=== PATIENT | male | born 1970 | race Caucasian/White ===

== ENCOUNTER 2022-01-02 11:43 | Emergency (ER) | payer OTHER, SELFPAY ==
[2022-01-02] VITALS (8 sets, daily range): BP systolic 123–136; BP diastolic 76–91; PULSE 66–75; RESP 13–28; TEMP 37.1; O2SAT 96–99; BMI 26.2
--- NOTE | 2022-01-02 11:55 | ED_ITS ---
HPI - Chest Pain General Chief Complaint: Extremity Problem,Nontraumatic Stated Complaint: Chest pain/ left arm hurting Time Seen by Provider: 01/02/22 11:54 History of Present Illness HPI narrative: Patient is a 51-year-old male presenting today with left arm discomfort. He was seen evaluated at [facility] when he was experiencing some sort of chest pain. At that time he was noted to be quite hypertensive he was started on blood pressure medication. He was told to follow up with the primary care provider whom he does not have for stress test. His dad had bypass surgery at the age of 60. Today patient presents with left arm achiness and says left scapular pain. For the last 1 week he has been taking his blood pressure medication and going about his daily activities. He denies any shortness of breath with exertion no actual chest pain. But he says he just does not feel quite right. Today he just feels like his left arm is achy he keeps moving it. The tips of his finger tips are tingly, but he does not have any weakness. No headache. No fever or chills. He states he had a negative stress test 1 year ago. Related Data Previous Rx's Medication Instructions Recorded hydrocodone 5 mg-acetaminophen 325 1 - 2 tab PO Q6HP PRN #20 tabs 05//17 mg tablet (Henriette) Allergies Allergy/AdvReac Type Severity Reaction Status Date / Time barley [BARLEY] Allergy Unknown Unverified 01/02/22 11:58 egg [EGG] Allergy Unknown Unverified 01/02/22 11:58 tomato [TOMATO] Allergy Unknown Unverified 01/02/22 11:58 yeast, dried [YEAST] Allergy Unknown Unverified 01/02/22 11:58 CIDAR Allergy Unknown Uncoded 01/02/22 11:58 Review of Systems Review of Systems Narrative: GENERAL: Denies chills, fatigue, malaise, fever, sweats, travel HEENT: Denies sinus pain, ear pain, sore throat, difficulty swallowing, neck pain RESPIRATORY: Denies dyspnea, cough, wheezing, hemoptysis, sputum. CARDIOVASCULAR: See HPI GASTROINTESTINAL: Denies nausea, vomiting, abdominal pain, diarrhea, constipation, melena. : Denies dysuria, frequency, incontinence, hematuria, urinary retention, flank pain. MUSCULOSKELETAL: Denies weakness, joint pain, or bony pain SKIN: No rash, no erythema, no pruritus NEUROLOGIC: Denies weakness, dizziness, headache, numbness, change in speech, confusion PSYCHIATRIC: No concerning psychosocial issues. 12 point review of systems is negative except for those stated above and HPI Patient History Social History Smoking Status: Never smoker Exam Initial Vital Signs Initial Vital Signs: Vital Signs Temperature 98.8 F 01/02/22 11:53 Pulse Rate 75 01/02/22 11:53 Respiratory Rate 18 01/02/22 11:53 Blood Pressure 136/87 01/02/22 11:53 Pulse Oximetry 99 01/02/22 11:53 Oxygen Delivery Method 01/02/22 11:53 GENERAL: Alert pleasant 51-year-old male and in no acute distress. HEENT: Head atraumatic,EOMI, pupils reactive, face symmetric, moist mucous membranes CARDIOVASCULAR: Regular rate and rhythm without murmurs, rubs or gallops. RESPIRATORY: Breath sounds equal bilaterally, no wheezes rales or rhonchi. ABDOMEN: Soft, nontender. Normoactive bowel sounds all 4 quadrants. No guarding or rebound. EXTREMITIES: Normal range of motion, no clubbing or edema. Neurovascularly intact NEUROLOGICAL: Alert and oriented x4.Normal gait and speech. Cranial nerves II through XII grossly intact. Good [id number], good [id number], strength equal bilaterally, no dysarthria or aphasia, sensation in tact to soft touch bilaterally, no visual changes, no facial droop SKIN: Warm, dry, no laceration, no petechiae, no rashes or lesions. Scores HEART Score Heart Score history: Moderately Suspicious Heart Score EKG: Normal Heart Score Age: 45-64 years old Heart Score risk factors: 1-2 risk factors Heart Score troponin: < or = to normal limit Heart Score Total: 3 PERC Score Age greater than or equal to 50 years: No Heart rate greater than or equal to 100 bpm: No Room Air O2 Sat less than 95%: No Unilateral leg swelling: No Recent trauma or surgery: No Hemoptysis: No Prior PE or DVT: No Hormone Use: No Total PERC Score: 0 Course Orders Ordered: ED Orders 01/02/22 11:58 XR chest 1V Stat 01/02/22 12:05 EKG-12 Lead Stat 01/02/22 12:10 Complete Blood Count AUTO DIFF Stat Comprehensive Metabolic Panel Stat D Dimer Stat Lipase Stat Magnesium Stat Troponin & CK Cardiac Panel Stat 01/02/22 14:11 Trop I [Troponin I] Stat 01/02/22 14:14 EKG-12 Lead Stat Vital Signs Vital signs: Vital Signs - 8 hr 01/02/22 11:53 01/02/22 13:10 01/02/22 13:30 Temperature 98.8 F Pulse Rate 75 73 73 Respiratory Rate 18 18 13 Blood Pressure 136/87 Pulse Oximetry 99 96 97 Oxygen Delivery Method Room Air 01/02/22 14:00 01/02/22 14:08 01/02/22 14:08 Temperature Pulse Rate 68 66 Respiratory Rate 17 28 H Blood Pressure 123/84 Pulse Oximetry 97 98 Oxygen Delivery Method 01/02/22 14:30 01/02/22 14:30 01/02/22 15:00 Temperature Pulse Rate 67 Respiratory Rate 19 Blood Pressure 126/85 129/91 H Pulse Oximetry 97 Oxygen Delivery Method 01/02/22 15:00 01/02/22 15:30 Temperature Pulse Rate 69 73 Respiratory Rate 19 Blood Pressure 127/76 Pulse Oximetry 96 99 Oxygen Delivery Method MDM - Chest Pain Lab Data Result diagrams: 01/02/22 12:10 01/02/22 12:10 Labs: Lab Results 01/02/22 01/02/22 01/02/22 Range/Units 12:10 12:10 12:10 WBC 5.7 (4.5-11.0) X10^3/uL RBC 5.34 (4.5-5.9) X10^6/uL Hgb 15.5 (13.5-17.5) g/dL Hct 44.3 (41-53) % MCV 83.0 (80-100) fL MCH 29.1 (26-34) PG MCHC 35.1 (30-36) % RDW 13.1 (11.6-14.8) % Plt Count 283 (150-400) X10^3/uL Neut % (Auto) 78.3 H (50-75) % Lymph % (Auto) 14.1 L (25-40) % [place] % (Auto) 5.7 (3-14) % Eos % (Auto) 1.3 L (2-4) % Baso % (Auto) 0.6 (0-2) % Neut # (Auto) 4400 (7147-1199) /uL Lymph # (Auto) 800 L (5670-1062) /uL [place] # (Auto) 300 (0-900) /uL Eos # (Auto) 100 (0-450) /uL Baso # (Auto) 0 (0-100) /uL D-Dimer < 500 (<500) ng/ml Sodium 141 (137-145) mmol/L Potassium 4.6 (3.4-5.1) mmol/L Chloride 105 (98-107) mmol/L Carbon Dioxide 27 (22-32) mmol/L BUN 16 (9-20) mg/dL Creatinine 1.05 (0.66-1.25) mg/dL Estimated GFR > 60 (>60) mL/min BUN/Creatinine Ratio 15.2 (6-22) Glucose 91 (70-100) mg/dL Calcium 9.3 (8.4-10.2) mg/dL Magnesium 2.3 (1.6-2.3) mg/dL Total Bilirubin 0.9 (0.2-1.3) mg/dL AST 30 (17-59) IU/L ALT 33 (<50) IU/L Alkaline Phosphatase 51 (38-126) U/L Total Creatine Kinase 170 (55-170) U/L CK-MB (CK-2) 3.52 H (<2.37) ng/mL CK-MB (CK-2) Rel Index 2.1 (1.5-5.0) % Troponin I < 0.012 (0.01-0.034) ng/mL Total Protein 7.6 (6.3-8.2) g/dL Albumin 4.6 (3.5-5.0) g/dL Globulin 3.0 (1.7-4.1) g/dL Albumin/Globulin Ratio 1.5 (1.0-2.8) Lipase 74 (23-300) U/L 01/02/22 Range/Units 14:11 WBC (4.5-11.0) X10^3/uL RBC (4.5-5.9) X10^6/uL Hgb (13.5-17.5) g/dL Hct (41-53) % MCV (80-100) fL MCH (26-34) PG MCHC (30-36) % RDW (11.6-14.8) % Plt Count (150-400) X10^3/uL Neut % (Auto) (50-75) % Lymph % (Auto) (25-40) % [place] % (Auto) (3-14) % Eos % (Auto) (2-4) % Baso % (Auto) (0-2) % Neut # (Auto) (1533-2848) /uL Lymph # (Auto) (9381-7624) /uL [place] # (Auto) (0-900) /uL Eos # (Auto) (0-450) /uL Baso # (Auto) (0-100) /uL D-Dimer (<500) ng/ml Sodium (137-145) mmol/L Potassium (3.4-5.1) mmol/L Chloride (98-107) mmol/L Carbon Dioxide (22-32) mmol/L BUN (9-20) mg/dL Creatinine (0.66-1.25) mg/dL Estimated GFR (>60) mL/min BUN/Creatinine Ratio (6-22) Glucose (70-100) mg/dL Calcium (8.4-10.2) mg/dL Magnesium (1.6-2.3) mg/dL Total Bilirubin (0.2-1.3) mg/dL AST (17-59) IU/L ALT (<50) IU/L Alkaline Phosphatase (38-126) U/L Total Creatine Kinase (55-170) U/L CK-MB (CK-2) (<2.37) ng/mL CK-MB (CK-2) Rel Index (1.5-5.0) % Troponin I < 0.012 (0.01-0.034) ng/mL Total Protein (6.3-8.2) g/dL Albumin (3.5-5.0) g/dL Globulin (1.7-4.1) g/dL Albumin/Globulin Ratio (1.0-2.8) Lipase (23-300) U/L Imaging Data Chest x-ray: Radiologist's Impression: CHRISTIANO Jo [id number] XRay Report Signed Patient: Gavin Payan MR#: [id number] : 1970 Acct:[id number] Age/Sex: 51 / M Date of Service: 01/02/22 Loc: ED Accession Number: [id number] ?? Procedure: XR chest 1V Ordering Provider: Yesi Silverman D.O. PROCEDURE:? XR CHEST 1V ? INDICATIONS:? chest pain ? TECHNIQUE:? One view of the chest was acquired.? ? COMPARISON:? None. ? FINDINGS:? ? Surgical changes and devices:? None.? ? Lungs and pleura:? Lungs are clear.? No pleural effusions or pneumothorax.? ? Mediastinum:? Mediastinal contours appear normal.? Heart size is normal.? ? Bones and chest wall:? No suspicious bony lesions.? Overlying soft tissues appear unremarkable.? ? IMPRESSION:? No acute cardiopulmonary disease. ? ? Dictated by: Zhang Lema M.D. on 01/02/2022 at 12:20 ? ECG Data Interpretation: Normal sinus rhythm rate 74 p.r. interval 132 QRS [address] changes Q- waves in 2 and 3 but not pathologic no priors to compare Normal sinus rate 67 AL interval 138 QRS [address] changes no T-wave inversions similar to previous EKG MDM Narrative Medical decision making narrative: Patient having constant left arm ache. No chest pain. 2- troponins 2 normal EKGs and negative D-dimer. He has a heart score of 3. He also had a negative stress test 1 year ago. He was found to have a sinus arrhythmia that lasted briefly. At that time he was sitting resting in bed. He may require an outpatient Holter monitor. I discussed this with both he and his . I still encouraged an outpatient stress test however patient is low risk and can be disc harged home. I discussed all findings with the patient and spouse, Education has been performed regarding treatment plan, diagnosis, warning signs and symptoms and all concerns have been addressed. Verbally agree with and understood all of the above. Discharge Plan Departure Patient Disposition: Home Clinical Impression: Atypical chest pain Instructions: DI for Atypical Chest Pain Activity Restrictions/Additional Instructions: *You have been diagnosed with atypical chest pain *What to do: It does look like you have an arrhythmia which does not last very long. It is not life-threatening. You may need a Holter monitor. You will need today care provider about You also need further cardiac testing, not indicated to stay in the hospital *Continue to take medications as directed Aspirin 81 mg daily *Follow up with your primary care provider in 2-3 days or call [phone] *Return to ER if you should have palpitations dizziness lightheadedness pain or any new, worsening or concerning symptoms Prescriptions: No Action hydrocodone-acetaminophen [Henriette] 5 MG/325 MG tablet 1 - 2 tab PO Q6HP PRNQty: 20 0RF Referrals: Alber Farah MD [Primary Care Provider] - Visit Report Forms: Patient Portal/API
--- NOTE | 2022-01-02 11:58 | DI.RAD.S_ITS ---
PROCEDURE: XR CHEST 1V INDICATIONS: chest pain TECHNIQUE: One view of the chest was acquired. COMPARISON: None. FINDINGS: Surgical changes and devices: None. Lungs and pleura: Lungs are clear. No pleural effusions or pneumothorax. Mediastinum: Mediastinal contours appear normal. Heart size is normal. Bones and chest wall: No suspicious bony lesions. Overlying soft tissues appear unremarkable. IMPRESSION: No acute cardiopulmonary disease. Dictated by: Zhang Lema M.D. on 01/02/2022 at 12:20 Approved by: Zhang Lema M.D. on 01/02/2022 at 12:20
[2022-01-02 12:25] LABS: Add Manual Diff / Slide Review NO; Basophils Absolute Auto 0 /uL (0-100); Basophils Percent Auto 0.6 % (0-2); Eosinophils Absolute Auto 100 /uL (0-450); Eosinophils Percent Auto 1.3 % (2-4); Hematocrit 44.3 % (41-53); Hemoglobin 15.5 g/dL (13.5-17.5); Lymphocytes Absolute Auto 800 /uL (1100-4500); Lymphocytes Percent Auto 14.1 % (25-40); Mean Corpuscular HGB Conc 35.1 % (30-36); Mean Corpuscular Hemoglobin 29.1 PG (26-34); Monocytes Absolute Auto 300 /uL (0-900); Monocytes Percent Auto 5.7 % (3-14); Neutrophils Absolute Auto 4400 /uL (1500-7000); Neutrophils Percent Auto 78.3 % (50-75); Platelet Count 283 X10^3/uL (150-400); Red Blood Cell Count 5.34 X10^6/uL (4.5-5.9); Red Cell Distribution Width 13.1 % (11.6-14.8); White Blood Cell Count 5.7 X10^3/uL (4.5-11.0)
--- NOTE | 2022-01-02 12:34 | PC.NURSE ---
Pt reports onset of left posterior shoulder pain this morning, radiation to left arm numbness. Denies chest pain.
[2022-01-02 12:54] LABS: Alanine Aminotransferase 33 IU/L (<50); Albumin 4.6 g/dL (3.5-5.0); Albumin Globulin Ratio 1.5 (1.0-2.8); Alkaline Phosphatase 51 U/L (38-126); Aspartate Aminotransferase 30 IU/L (17-59); BUN Creatinine Ratio 15.2 (6-22); Bilirubin Total 0.9 mg/dL (0.2-1.3); Blood Urea Nitrogen 16 mg/dL (9-20); Calcium 9.3 mg/dL (8.4-10.2); Carbon Dioxide 27 mmol/L (22-32); Chloride 105 mmol/L (98-107); Creatine Kinase 170 U/L (55-170); Estimated Glomerular Filt Rate > 60 mL/min (>60); Glucose 91 mg/dL (70-100); HEMOLYSIS < 15 (0-50); Lipase 74 U/L (23-300); Magnesium 2.3 mg/dL (1.6-2.3); Potassium 4.6 mmol/L (3.4-5.1); Sodium 141 mmol/L (137-145); Total Protein 7.6 g/dL (6.3-8.2)
[2022-01-02 13:05] LABS: Troponin I < 0.012 ng/mL (0.01-0.034)
[2022-01-02 13:09] LABS: CKMB % Relative Index 2.1 % (1.5-5.0); Creatine Kinase MB 3.52 ng/mL (<2.37)
[2022-01-02 13:11] LABS: D Dimer < 500 ng/ml (<500)
[2022-01-02 14:47] LABS: Troponin I < 0.012 ng/mL (0.01-0.034)
--- NOTE | 2022-01-02 15:04 | PC.NURSE ---
Notified provider that patient reported a funny feeling and that he saw his heart rate on the monitor in the 140's.
== END 2022-01-02 15:37 | disposition home or self-care (01) ==
PROVIDERS: Emergency Provider Emergency Medicine; Family Provider Family Medicine; PCP Family Medicine
DX: R07.89 Other chest pain (principal)
CPT/HCPCS: 36415; 71045; 80053; 82550; 82553; 83690; 83735; 84484; 85025; 85379; 93005; 93010; 99283; 99284